=== PATIENT | female | born 1940 | race Caucasian/White ===

== ENCOUNTER → 2017-04-19 | Day surgery (SDC) | payer OTHER ==
[~2017-04-19] VITALS: Ht 167.6 cm; Wt 88.8 kg
[~2017-04-19] MED LIST: ACETAMINOPHEN 1000 MG/100 ML 100 ML IV ONE; ACETAMINOPHEN 500 MG CPLT PO PRN; ATROPINE SULFATE 1% OPHT SOLN 2 ML BTL ONE; BALANCED SALT SOLN OPHT IRRIG 15 ML BTL ONE; CALC1TAB87 PO; CHLORHEXIDINE GLUCONATE 2 % 1 PACK (2 CLOTHS) TOPICAL PRN; CYCLOPENTOLATE HCL 1% OPHT SOLN 2 ML BTL ONE; DAILTAB38 PO; DEXAMETHASONE SOD PHOS 4 MG/ML VIAL ONE; DO NOT ADM ANY ANTICOAGULANT DRUGS PRN; EPINEPHrine HCL (1:1000) 1 MG/ML VIAL ONE; FAMOTIDINE 20 MG/2 ML VIAL ONE; FURO40TA PO; HYDROmorphone HCL PF 2 MG/ML VIAL ONE; INSULIN HUMAN REGULAR 1,000 UNITS/10 ML VIAL SQ PRN; LACTATED RINGER'S 1000 ML INJ 1,000 ML IV ONE; LACTATED RINGER'S 1000 ML IV PRN; LEVO75TA3 PO; LISI-515 PO; LOVA40TA PO; METOPROLOL TARTRATE 25 MG TAB PO PRN; MORPHINE SULFATE 4 MG/ML INJ ONE; MULT1TAB46; NORC5TAB PO; OMEP20TA PO; ONDANSETRON HCL 4 MG/2 ML VIAL IM PRN; ONDANSETRON HCL 4 MG/2 ML VIAL IV PUSH ONE; ONDANSETRON HCL 4 MG/2 ML VIAL IV PUSH PRN; PHENYLEPH/NS 1000 MCG/10 ML SYR IV ONE; PHENYLEPHRINE HCL 2.5% OPTH SOLN 2 ML BTL ONE; POTA-163 PO; POVIDONE IODINE 5% (ANTISEPSIS KIT) 4 APPLICATIONS EACH NARE PRN; PROPOFOL 200 MG/20 ML AMP IV ONE; ROPI1TAB PO; SODIUM CHLORID 0.9% 500 ML IV PRN; STERILE WATER FOR INJECTION 20 ML VIAL ONE; TOBRAMYCIN/DEXAMETHASONE OPTH OINT 3.5 GM TUBE ONE; TRIAMCINOLONE ACETONIDE/PF 40 MG/ML OPTH VIAL ONE; TROPICAMIDE 1% OPHT SOLN 15 ML BTL ONE; VITA1000 PO; ceFAZolin INJ 1,000 MG VIAL ONE; ePHEDrine/NS 25 MG/5 ML SYR IV ONE; oxyCODONE/ACETAMINOPHEN 5 MG/325 MG TAB PO PRN
[2017-04-19 08:45] LABS: BASOPHIL # 0.1 TH/MM3 (0-0.2); BASOPHIL % 0.7 % (0.0-2.0); EOSINOPHIL # 0.2 TH/MM3 (0-0.4); EOSINOPHIL % 2.5 % (0.0-4.0); HEMATOCRIT 35.8 % (35.0-46.0); HEMO FLAGS DIFF FINAL; LYMPH % 23.1 % (9.0-44.0); LYMPHOCYTE # 1.9 TH/MM3 (1.0-4.8); MEAN CELL VOLUME 89.1 FL (80.0-100.0); MEAN CORPUSCULAR HEMOGLOBIN 30.1 PG (27.0-34.0); MEAN CORPUSCULAR HGB CONC 33.8 % (32.0-36.0); MONO % 11.5 % (0.0-8.0); NEUT % 62.2 % (16.0-70.0); PLATELET COUNT 282 TH/MM3 (150-450); RED BLOOD COUNT 4.02 MIL/MM3 (4.00-5.30); RED CELL DISTRIBUTION WIDTH 14.6 % (11.6-17.2); WHITE BLOOD COUNT 8.1 TH/MM3 (4.0-11.0)
[2017-04-19] MEDS: CYCLOPENTOLATE HCL 1% OPHT SOLN 2 ML BTL RIGHT EYE SCH ×4 (09:00→09:54)
[2017-04-19] MEDS: PHENYLEPHRINE HCL 2.5% OPTH SOLN 2 ML BTL RIGHT EYE SCH ×4 (09:00→09:54)
[2017-04-19] MEDS: ATROPINE SULFATE 1% OPHT SOLN 5 ML BTL RIGHT EYE SCH ×4 (09:00→09:54)
[2017-04-19] MEDS: TROPICAMIDE 1% OPHT SOLN 15 ML BTL RIGHT EYE SCH ×4 (09:00→09:54)
[2017-04-19 14:27] VITALS: BP 117/69; PULSE 96; RESP 16; TEMP 98.1; O2SAT 92
--- NOTE | 2017-04-19 14:28 | EKG ---
Date Performed: 04/19/2017 Time Performed: 08:19:01 PTAGE: 76 years EKG: Sinus rhythm NORMAL ECG NO PREVIOUS TRACING DOCTOR: Sal Tavera Interpretating Date/Time 04/19/2017 14:27:22
--- NOTE | 2017-04-21 17:56 | MP ---
cc: EMMANUELLE FONTANA M.D. DATE OF SURGERY: 04/21/2017. PREOPERATIVE DIAGNOSIS: Visually significant epiretinal membrane with macular pucker and edema, right eye. POSTOPERATIVE DIAGNOSIS: Visually significant epiretinal membrane with macular pucker and edema, right eye. OPERATIVE PROCEDURE PERFORMED: Trans pars plana vitrectomy with membranectomy and air-fluid exchange, right eye. SURGEON: Emmanuelle Fontana MD. ANESTHESIA: General endotracheal anesthesia. INDICATIONS FOR THE PROCEDURE: Ms. Jose is a 76-year-old woman with a history of decreasing vision in her right eye over the last several months. She presented with visual acuity in that eye at 20/400 J 16 and a significant epiretinal membrane was found. The OCT showed the membrane as well as intraretinal edema under the membrane. Because of the severity of her visual decrease, she wished to proceed electively with a vitrectomy and membrane peel. The risks and benefits of surgery were discussed with the patient and informed consent was obtained. No guarantee was made as to visual outcome. DESCRIPTION OF THE PROCEDURE IN DETAIL: She was brought to [facility] Operating Room #1 and placed on the operating table. Appropriate anesthesia monitoring devices were applied and she was placed under general anesthesia using a laryngeal mask. The right eye was identified as the operative site and then prepped and draped in the usual sterile fashion. A lid speculum was placed. At this point, an appropriate time-out was called with the surgical team agreeing to the surgical site and planned procedure. The microscope was brought around and adjusted. Using the Angelo 23-gauge vitrectomy system, the trocar cannulas were placed 4 mm posterior to the limbus after first displacing the conjunctiva and with a beveled entrance. The first one was placed at approximately 8:45 o'clock and verified to be in the posterior chamber. An infusion port was affixed to it and turned on. Two additional trocar cannulas were placed in similar fashion at 10 and 2 o'clock. A small amount of Kenalog was injected to help visualize the vitreous. The eye was entered with the [employer] associate light pipe and vitrectomy cutter and using the flat contact lens, a core vitrectomy was carried out. The membrane was tenacious and was removed with a combination of both the Mendoza membrane scraper and the grasping forceps. A few blot hemorrhages occurred as the membrane was removed from the surface. The BIOM wide angle viewing system was next used to trim the peripheral vitreous. The plugs were placed back in the eye and the fundus was inspected with the indirect ophthalmoscope and scleral depression. No retinal breaks were found. Using the soft tipped linear extrusion needle, an air-fluid exchange was performed. The plugs were placed back in the cannulas and they were removed one by one with tamponade of the site with a cotton swab and diathermy to the overlying conjunctiva. The last one was the infusion port cannula which was removed in similar fashion, leaving the eye with good pressure and no visible air leaks. Atropine drops were placed on the cornea followed by subconjunctival actions of Ancef 125 milligrams in 0.5 cc and Decadron 2 mg in 0.5 cc. The lid speculum was removed. The patient was undraped. TobraDex ointment was placed on the cornea and the right eye was patched and shielded. 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 When awake and alert, she will be asked to begin face-down positioning. MD YANET Qiu/KATE /12:22 PM /5:34 PM
== END | disposition home or self-care (01) ==
LOC: HSDC 07:42
PROVIDERS: ATTEND Ophthalmology
DX: H35.371 Puckering of macula, right eye (principal); Z01.810 Encounter for preprocedural cardiovascular examination
CPT/HCPCS: 00145; 67042; 85025; 93005; J0131; J0171; J0690; J1100; J1170; J2270; J2370; J2405; J3300; J7120